=== PATIENT | male | born 1950 | race Two or more races ===

== ENCOUNTER 2016-10-27 21:00 | Emergency (ER) | payer SELFPAY ==
[~2016-10-27] VITALS: Ht 165.1 cm; Wt 72.6 kg
[2016-10-27 21:10] VITALS: BP 158/95
== END 2016-10-27 21:34 | disposition home or self-care (01) ==
LOC: EDBD → ER 21:04
DX: Z76.0 Encounter for issue of repeat prescription (principal); R79.89 Other specified abnormal findings of blood chemistry; E11.9 Type 2 diabetes mellitus without complications
CPT/HCPCS: 82962; 99283; A4606; Z7610

== ENCOUNTER 2016-12-19 20:50 | Emergency (ER) | payer SELFPAY ==
[~2016-12-19] VITALS: Ht 170.2 cm; Wt 75.7 kg
--- NOTE | 2016-12-19 20:55 | NUR ---
TO BED 3 A 66YO MALE PATIENT BIB C/O CP INTERMITTENT X1 MONTH.HBP AND EYE PRESSURE. AAOX4, NAD NOTED. VSS. NONDIAPHORETIC. PLACED ON CARDIAC AND VS MONITORING. GOWNED. COMFORT MEASURES RENDERED.
[2016-12-19 21:25] LABS: BASOPHILS % (AUTO) 0.5 % (0.0-2.0); EOSINOPHILS # (AUTO) 0.3 /CMM (0.0-0.7); EOSINOPHILS % (AUTO) 3.4 % (0.0-6.0); HEMATOCRIT 41 % (39-51); HEMOGLOBIN 13.9 g/dL (13.5-17.5); LYMPHOCYTES # (AUTO) 1.8 /CMM (0.8-4.8); LYMPHOCYTES % (AUTO) 23.6 % (20.0-44.0); MEAN CORPUSCULAR HEMOGLOBIN 29 PG (26.0-33.0); MEAN CORPUSCULAR HGB CONC 34 g/dl (31.0-36.0); MEAN CORPUSCULAR VOLUME 87 fL (80-96); MONOCYTES # (AUTO) 0.7 /CMM (0.1-1.30); MONOCYTES % (AUTO) 8.8 % (2.0-12.0); NEUTROPHILS # (AUTO) 4.7 /CMM (1.8-8.9); NEUTROPHILS % (AUTO) 63.7 % (43.0-81.0); PLATELET COUNT (AUTO) 232 /CMM (150-450); RDW COEFFICIENT OF VARIATION 12.9 (11.5-15.0); RED BLOOD CELL COUNT(AUTO) 4.75 MIL/uL (4.5-6.0); WHITE BLOOD COUNT (AUTO) 7.5 K/uL (4.3-11.0)
[2016-12-19] MEDS ORDERED: ASPIRIN 81 MG TAB.CHEW ONE (21:28)
[2016-12-19] MEDS ORDERED: ASPIRIN 81 MG TAB.CHEW PO ONE (21:30)
[2016-12-19 21:35] LABS: CALCIUM, SERUM 9.1 mg/dL (8.5-10.1); CARBON DIOXIDE 28 mmol/L (21-32); CHLORIDE 101 mmol/L (98-107); CREATININE 1.3 mg/dL (0.6-1.3); GLUCOSE 221 mg/dL (74-106); SODIUM SERUM 138 mmol/L (136-145); UREA NITROGEN, BLOOD 16 mg/dL (7-18)
[2016-12-19 21:43] LABS: TROPONIN I < 0.017 ng/mL (0.00-0.056)
--- NOTE | 2016-12-19 23:42 | NUR ---
IV removed. Catheter intact and site benign. Pressure and 4x4 applied to site. No bleeding noted. Patient discharged to home in stable condition. Written and verbal after care instructions given. Patient verbalizes understanding of instruction. Patient is ambulatory with steady gait, no further complaints.
[2016-12-19 23:43] VITALS: BP 155/89
== END 2016-12-19 23:43 | disposition home or self-care (01) ==
LOC: ER 20:54 → EDBD 20:54 → ER 23:43
DX: I10 Essential (primary) hypertension (principal); E11.9 Type 2 diabetes mellitus without complications; E78.5 Hyperlipidemia, unspecified; F17.200 Nicotine dependence, unspecified, uncomplicated
CPT/HCPCS: 36415; 71010; 80048; 82962; 84484; 85025; 93005; 99285; A4606; Z7610